=== PATIENT | female | born 1930 | race Caucasian/White ===

== ENCOUNTER 2019-06-02 14:43 | Emergency (ER) | payer MEDICARE ==
[2019-06-02 14:56] LABS: #Basophils 0.2 thou/uL (0.0-0.2); #Eosinphils 0.1 thou/uL (0.0-0.7); #Lymphocytes 1.1 thou/uL (1.20-3.40); #Monocytes 0.7 thou/uL (0.11-0.59); #Neutrophils 4.5 thou/uL (1.40-6.50); %Basophils 2.5 % (0.0-1.0); %Eosinophils 2.1 % (0.0-10.0); %Lymphocytes 16.3 % (21.0-51.0); Hemoglobin 13.4 g/dL (12.0-16.0); Mean Corpuscular HGB CONC 31.1 g/dL (32.0-36.0); Mean Corpuscular Hemoglobin 30.5 pg (27.0-31.0); Mean Platelet Volume 9.1 fL (7.4-10.4); Platelet Count 204 thou/uL (130-400); RBC Distribution Width 12.5 % (11.5-14.5); Red Blood Cell (RBC) Count 4.39 mill/uL (4.20-5.40); White Blood Cell (WBC) Count 6.6 thou/uL (4.8-10.8)
[2019-06-02 14:59] LABS: PTT 24.9 SEC (22.9-36.1); Prothrombin Time 13.3 SEC (12.0-14.7)
[2019-06-02 15:04] LABS: Lactic Acid 0.9 mmol/L (0.5-2.2)
--- NOTE | 2019-06-02 15:04 | CT ---
HEAD CT WITHOUT CONTRAST: HISTORY: Altered mental status. COMPARISON: None. FINDINGS: Hemorrhage: No intraparenchymal hemorrhage or extra-axial hematoma. Brain parenchyma: Cortical chávez-white matter differentiation is preserved. No mass effect or midline shift. Basilar cisterns are patent.Age-appropriate atrophy. Minimal chronic small vessel ischemic changes. Ventricular system: Ventricles and sulci are patent and symmetric. Calvarium: Intact. Sinuses and mastoid air cells: Adequate aeration. IMPRESSION: No acute intracranial process. Results of study discussed with Dr. Arredondo to 11/13/2019 3:03 PM. Code CR Transcribed Date/Time: 06/02/2019 3:07 PM
[2019-06-02 15:08] LABS: ALT (SGPT) 19 U/L (8-55); AST (SGOT) 26 U/L (5-34); Albumin 4.2 g/dL (3.4-4.8); Alkaline Phosphatase 44 U/L (40-110); Anion Gap 15 mmol/L (10-20); BUN (Urea Nitrogen) 25 mg/dL (9.8-20.1); Bilirubin, Total 0.6 mg/dL (0.2-1.2); Calc. Creatinine Clearance 0 mL/min (70-130); Calcium 9.8 mg/dL (7.8-10.44); Carbon Dioxide 24 mmol/L (23-31); Chloride 107 mmol/L (98-107); Estimated GFR-MDRD 40; Globulin 3.1 g/dL (2.4-3.5); Glucose 103 mg/dL (83-110); Potassium 4.7 mmol/L (3.5-5.1); Protein, Total 7.3 g/dL (6.0-8.3); Sodium 141 mmol/L (136-145)
--- NOTE | 2019-06-02 15:35 | CT ---
EXAM: CT ANGIOGRAM OF THE HEAD AND NECK INDICATION: Altered mental status COMPARISON: None TECHNIQUE: CT angiogram of the head and neck are performed in the axial plane. Three-dimensional refo rmatted images are submitted for interpretation. FINDINGS: CTA OF THE HEAD WITH AND WITHOUT CONTRAST: POSTCONTRAST CT OF BRAIN: Pathologic enhancement: No pathologic enhancement the brain. Postcontrast soft tissue neck CT: Sinuses: Right maxillary sinus disease. Orbits: Bilateral ocular lenses implants are appropriately located. Both globes are intact. Retrobulb ar fat is preserved. Symmetric attenuation the optic nerves and ocular rectus muscles. Salivary glands:Symmetric attenuation of the parotid and submandibular glands Thyroid gland: Diminutive Lymph nodes: No evidence of lymphadenopathy by size criteria. Paraspinal muscles: Symmetric attenuation of the sternocleidomastoid muscles. Appropriate attenuation of the paraspinal muscles. Cervical spine:Vertebral body height is maintained. No fracture. No significant central canal stenosi s or significant neural foraminal narrowing. Limited evaluation by technique. Grade 1 anterolisthesis of C4 upon C5 likely due to degenerative change. Upper mediastinum and lung apices: No acute abnormal CTA OF THE NECK WITH CONTRAST: Aorta: Appropriate enhancement and luminal diameter Right carotid artery: Right carotid artery origin, common carotid artery, carotid bifurcation and int ernal carotid artery have appropriate enhancement and luminal diameter. There is calcified plaque in the right carotid bifurcation. No significant stenosis based upon NASCET criteria. The right inter nal carotid artery has appropriate enhancement and luminal diameter. Left carotid: The left carotid artery origin has appropriate enhancement and luminal diameter. The le ft common carotid artery demonstrates atherosclerotic plaque without significant stenosis based upon NASCET criteria. There is a sharp hairpin turn involving the proximal left internal carotid johanny ry. There is no significant stenosis throughout the left internal carotid artery. Subclavian arteries:Patent and symmetric. Mild atherosclerosis at the origin of left subclavian arter y. Vertebral arteries:Patent throughout their course in the neck. Vertebral arteries are essentially cod ominant CTA OF THE BRAIN: Intracranial internal carotid arteries:Atherosclerosis in both cavernous segments. No significant kaleigh nosis Anterior circulation: . Appropriate enhancement and luminal diameter of bilateral A1 and M1 segments. Proximal A2 segments and proximal MCA branches are symmetric Intracranial vertebral arteries: Appropriate enhancement and luminal diameter. Bilateral PICA artery origins are unremarkable Posterior circulation: Both vertebral arteries supply normal caliber vertebral artery. Bilateral P1 s egments are unremarkable IMPRESSION: No hemodynamically significant stenosis, occlusion or aneurysmal formation. Results of study discussed with Dr. Burch on 06/02/2019 at 3:34 PM Code CR Transcribed Date/Time: 06/02/2019 3:42 PM
[2019-06-02 15:59] LABS: Bilirubin Negative (Negative); Blood, Urine Negative (Negative); Clarity Clear (Clear); Glucose, Urine (Dipstick) Negative (Negative); Leukocyte Trace (Negative); Nitrite Negative (Negative); Protein, Urine (Dipstick) Negative (Neg-Trace); Urobilinogen 0.2 mg/dL (Less than 2)
[2019-06-02 16:02] LABS: Bacteria/HPF None Seen HPF (None Seen); RBC/HPF 0-3 HPF (0-3); Squamous Epithelial 0-3 HPF (0-3); WBC/HPF 0-3 HPF (0-3)
--- NOTE | 2019-06-02 17:12 | RAD ---
PORTABLE CHEST 06/02/19 An AP portable film at 1527 shows the heart to be borderline in size. There are no congestive change s or pleural effusions. The lungs are clear. IMPRESSION: Borderline heart size. No acute pulmonary findings. POS: HOME
== END 2019-06-02 17:39 | disposition short-term general hospital (02) ==
LOC: BURERS 14:43
DX: R41.82 Altered mental status, unspecified (principal); I10 Essential (primary) hypertension; E03.9 Hypothyroidism, unspecified; K21.9 Gastro-esophageal reflux disease without esophagitis; Z79.899 Other long term (current) drug therapy
CPT/HCPCS: 36415; 36416; 70450; 70496; 71045; 80053; 81003; 81015; 83605; 84443; 84484; 85025; 85610; 85730; 93005; 94760; 96360